=== PATIENT | female | born 1970 | race African-American/Black ===

== ENCOUNTER 2019-03-10 16:40 | Emergency (ER) | payer OTHER ==
[~2019-03-10] VITALS: Ht 170.2 cm; Wt 72.6 kg
[~2019-03-10 16:40] MED LIST: MEDROLDOSEPACK PO
[2019-03-10] MEDS ORDERED: HYDROCHLOROTHIA25 M2 PO (16:54)
[2019-03-10] MEDS ORDERED: EFFER-K 20 MEQ20 ME1 PO (16:54)
[2019-03-10] MEDS ORDERED: NORVASC10 MG PO (16:54)
[2019-03-10 17:23] LABS: ABSOLUTE NEUTROPHILS 3.5 thou/uL (1.4-8.2); EOSINOPHILS 0.7 % (0.0-3.0); HEMATOCRIT 33.4 % (37.0-47.0); HEMOGLOBIN 11.5 gm/dL (12.0-15.0); LYMPHOCYTES 36.2 % (24.0-44.0); MCH 31.4 pg (26.0-34.0); MCHC 34.6 g/dL (28.0-37.0); MONOCYTES 7.8 % (1.0-8.0); PLATELET COUNT 350 thou/uL (150-400); POLYS 54.3 % (36.0-66.0); RBC 3.67 mil/uL (4.20-5.00); RDW 13.8 % (10.5-14.5); WBC 6.5 thou/uL (4.0-11.0)
[2019-03-10 17:35] LABS: ANION GAP 9 mmol/L (7-16); BUN 16 mg/dL (7-18); CALCIUM 9.2 mg/dL (8.5-10.1); CHLORIDE 100 mmol/L (98-107); CO2 31 mmol/L (21-32); CREATININE 1.3 mg/dL (0.6-1.0); GLUCOSE 120 mg/dL (74-106); POTASSIUM 3.1 mmol/L (3.5-5.1); SODIUM 140 mmol/L (136-145)
[2019-03-10 17:43] LABS: ALBUMIN 3.7 g/dL (3.4-5.0); LIPASE 127 U/L (73-393); SGOT 18 U/L (15-37); SGPT 21 U/L (30-65); TOTAL BILIRUBIN 0.1 mg/dL (<0.1-1.0); TOTAL PROTEIN 7.7 g/dL (6.4-8.2); TROPONIN-I <0.06 ng/mL (<0.06)
[2019-03-10] MEDS ORDERED: MOBIC7.5 MG PO (18:27)
[2019-03-10 18:54] VITALS: BP 115/74
--- NOTE | 2019-03-11 12:53 | EKG ---
[place] [address] [address] [facility] [place] [address] ELECTROCARDIOGRAM REPORT Name: KENDRICK DE LA FUENTE Room #: [facility]#: [id number] ������������������ Admission: 03/10/19 ������������������ Attend Phys: Discharge: 03/10/19 ������������������ Date of : 72 Report #: [id number] ����������������������������������������������������������������� [id number] THIS REPORT FOR: //name// [facility] ED Test Date: 2019-03-10 Test Time: 16:44:25 Pat Name: KENDRICK DE LA FUENTE Department: Room: Gender: F [employer]: nikunj : 1970 Requested By: Olga Lidia Hammond Order Number: [id number] MD: Edmundo Arshad Measurements Intervals [place] Rate: 77 P: -2 [place]: 131 QRS: 65 QRSD: 88 T: -44 QT: 378 QTc: 428 Interpretive Statements Sinus rhythm Consider left ventricular hypertrophy Borderline T abnormalities, inferior leads No previous ECG available for comparison Electronically Signed On 03-11-2019 12:53:32 CDT by Edmundo Arshad [email or web address] ��������������������������������������������� <ELECTRONICALLY SIGNED> ���������������������������������������� By: Edmundo Arshad MD, [facility] ��������������������������������������������� 03/11/19 1253 1644 1644 Edmundo Arshad MD, FACC /EPI
== END 2019-03-10 19:01 | disposition home or self-care (01) ==
LOC: ER 16:40
PROVIDERS: Nurse Practitioner Family
DX: R07.89 Other chest pain (principal); I10 Essential (primary) hypertension; G43.909 Migraine, unspecified, not intractable, without status migrainosus; Z88.0 Allergy status to penicillin; Z88.6 Allergy status to analgesic agent